=== PATIENT | female | born 1990 | race Caucasian/White ===

== ENCOUNTER → 2016-10-13 | Outpatient (CLI) | payer BC, OTHER ==
[~2016-10-13] MED LIST: PRENTAB26 PO
[2016-10-17 02:38] LABS: CHLAMYDIA TRACH RNA*** NOT DETECTED (NOT DETECTED); GC (NEIS GONORRHOEAE)RNA** NOT DETECTED (NOT DETECTED)
== END | disposition home or self-care (01) ==
LOC: C.LABSPEC 15:00
PROVIDERS: ATTEND Obstetrics & Gynecology
DX: Z34.81 Encounter for supervision of other normal pregnancy, first trimester (principal)

== ENCOUNTER → 2016-10-13 | Outpatient (CLI) | payer BC, OTHER | END | disposition home or self-care (01) | LOC: C.PAPS 15:10 | PROVIDERS: ATTEND Obstetrics & Gynecology | DX: R87.610 Atypical squamous cells of undetermined significance on cytologic smear of cervix (ASC-US) (principal) ==

== ENCOUNTER 2016-11-11 10:29 | Day surgery (SDC) | payer BC, OTHER ==
--- NOTE | 2016-11-10 18:49 | HISTORY & PHYSICAL EXAMINATION ---
DATE: 11/11/16 CHIEF COMPLAINT: Intrauterine demise at 8 weeks 5 days. HISTORY OF PRESENT ILLNESS: The patient is a 26-year-old 2, para 1, general health is good. Last menstrual period for this was 08/29/2016. On 10/27/2016, she had a transvaginal ultrasound which showed an intrauterine gestation 8 weeks 1 day and a heartbeat. Her next visit was on 11/10/2016. We were unable to get the heart tones with abdominal Doppler. We then did an abdominal ultrasound which diagnosed an intrauterine demise at 8 weeks 5 days gestation. She is presently being scheduled for an outpatient D&E. PAST MEDICAL HISTORY: She has no known drug allergies. No history of rheumatic fever, heart disease, heart murmur, diabetes, tuberculosis. She has a girl 2 years old, in good health. PAST SURGICAL HISTORY: She has had oral surgery in 2013. SOCIAL HISTORY: No smoking. No alcohol intake. Works at home. FAMILY HISTORY: Mom is 56, in good health. Father 57, has diabetes and high blood pressure. Has 3 younger sisters, in good health. REVIEW OF SYSTEMS: HEAD: No symptoms of frequent or severe headaches. EYES: No symptoms of blurred vision, double vision. EARS: No symptoms of frequent ear infection, difficulty hearing. NOSE: No symptoms of frequent nosebleeds, difficulty breathing through her nose. THROAT: No symptoms of frequent or severe sore throat, difficulty swallowing. RESPIRATORY SYSTEM: No history of asthma, chest pain, shortness of breath. PHYSICAL EXAMINATION: GENERAL: Well-developed, well-nourished 26-year-old white female, alert, oriented x3 and cooperative, in no acute distress, appears her stated age. EYES: Conjunctivae are pink, sclerae white, no evidence of jaundice. EARS: Had normal light reflex bilaterally. NOSE: Had normal mucosa. Septum is midline. There were no polyps. THROAT: No erythema or evidence of infection. Teeth are in good state of repair. HEAD: Was normocephalic, normal distribution of hair. NECK: Supple. Trachea midline. Thyroid is not enlarged. There is no adenopathy appreciated. Both carotids are of good intensity. CHEST: Clear to auscultation and percussion. No wheezes, rales or rhonchi appreciated. ABDOMEN: Soft and nontender. PELVIC: Revealed a normal appearing cervix. Uterus is about 8-9 weeks' gestational size. There were no adnexal masses appreciated. MUSCULOSKELETAL: Revealed no calf tenderness. IMPRESSIONS OF THIS CASE: Intrauterine demise at 8 weeks 5 days gestation.
[~2016-11-11] VITALS: Ht 167.6 cm; Wt 59.9 kg
[~2016-11-11 10:29] MED LIST changes: +DEXAMETHASONE SOD INJ 4 MG/ML VIAL ONE; +FENTANYL CITRATE INJ 50 MCG/1 ML 2 ML VIAL ONE; +LIDOCAINE HCL 2% 2 ML VIAL (20MG/ML) ONE; +MIDAZOLAM HCL 1 MG/ML 2ML VIAL ONE; +ONDANSETRON INJ 2 MG/ML 2 ML VIAL ONE; +PROPOFOL IV EMULSION 10 MG/ML 20 ML VIAL IV ONE
[2016-11-11 10:47] VITALS: BP 116/85; PULSE 80; TEMP 36.7; O2SAT 100; Ht 167.6 cm; Wt 59.9 kg
--- NOTE | 2016-11-11 11:44 | History & Physical Bridge Note ---
H&P Re-Evaluation Bridge Note: I have examined the patient, reviewed the History & Physical and in the interval since the performance of the History & Physical I have noted the following changes of clinical significance: No changes noted
[2016-11-11] MEDS ORDERED: SODIUM CHLORIDE 0.9% 1000ML 1,000 ML IV SCH (12:29)
[2016-11-11] MEDS ORDERED: OXYCODONE/ACETAMINOPHEN 5-325 TAB PO PRN ×2 (12:30)
[2016-11-11] MEDS ORDERED: ONDANSETRON INJ 2 MG/ML 2 ML VIAL IV PRN ×2 (12:30→13:00)
[2016-11-11] MEDS ORDERED: HYDROCODONE/ACETAMOPHEN 5/325MG TAB PO PRN ×4 (12:30)
[2016-11-11] MEDS ORDERED: IBUPROFEN 600 MG TAB PO PRN (12:30)
[2016-11-11] MEDS ORDERED: KETOROLAC TROMETHAMINE 30 MG/ML VIAL IV. PRN (12:30)
--- NOTE | 2016-11-11 12:33 | [facility] Post Operative Brief Note ---
Immediate Operative Summary Operative Date Nov 11, 2016. Pre-Operative Diagnosis missed at 8 weeks 3 days Post-Operative Diagnosis same pathology pending Procedure(s) Performed suction and sharp evacuation uterine cavity Surgeon мария Icing Machine Operator Surgeon(s) none Estimated Blood Loss 50 ml Findings uterine contents Specimens uterine contents Complication(s) None Disposition Recovery Room / PACU
--- NOTE | 2016-11-11 12:34 | Discharge Instructions ---
Discharge Instructions Date of Service Nov 11, 2016. Admission Reason for Admission: Missed Discharge Discharge Diagnosis / Problem: missed Discharge Goals Goal(s): Routine recovery after surgery Activity Recommendations Activity Limitations: as noted below ACTIVITY RECOMMENDATIONS: * Avoid tampons, douching, hot tubs, pools, and intercourse until bleeding has stopped. * May shower as usual. * No strenuous activity for 24-48 hours. After 24-48 hours, you may do anything you feel like doing (driving and sports are okay). SPECIAL CARE INSTRUCTIONS: Special Diet: * Mild nausea may occur in the immediate post-operative period. * Take clear liquids such as tea, cola or bouillon until all nausea has subsided; you may then resume your normal diet. Special Care: * Light bleeding and vaginal spotting can last from a few days to 3-4 weeks. Call your doctor if bleeding becomes heavier than the heaviest part of your period. * Check your temperature twice a day for one week. If it goes above 100.4 degrees Fahrenheit (38.0 Celsius), notify your doctor. * Call your doctor's office for an appointment for 6 weeks after your surgery. FOLLOW-UP VISIT: Call your doctor's office for an appointment for 6 weeks after your surgery. . Current Hospital Diet Patient's current hospital diet: Discharge Diet Recommended Diet: Regular Diet Procedures Procedures Performed: suction and sharp evacuation uterine cavity Pending Studies Studies pending at discharge: no Medical Emergencies . Who to Call and When: Medical Emergencies: If at any time you feel your situation is an emergency, please call 911 immediately. . Non-Emergent Contact Non-Emergency issues call your: [employer] Call Non-Emergent contact if: temperature is above 100.5 . . "Provider Documentation" section prepared by Seng Gatica. VTE Core Measure Inpt VTE Proph given/why not?: Treatment not indicated
[2016-11-11] MEDS ORDERED: OXYTOCIN INJ 10 UNITS/ML VIAL ONE (12:51)
[2016-11-11] MEDS ORDERED: FENTANYL CITRATE INJ 50 MCG/1 ML 2 ML VIAL ONE (12:55)
[2016-11-11] MEDS ORDERED: HYDROmorphone INJ 1 MG/ML SYR IV PRN (13:00)
[2016-11-11] MEDS ORDERED: ATROPINE SULFATE 0.1 MG/ML 5ML SYR IV PRN (13:00)
[2016-11-11] MEDS ORDERED: FENTANYL CITRATE INJ 50 MCG/1 ML 2 ML VIAL IV PRN (13:00)
[2016-11-11] MEDS ORDERED: PROMETHAZINE HCL INJ 6.25 MG in SODIUM CHLORIDE 0.9% 50ML 50 ML IV PRN (13:00)
[2016-11-11] MEDS ORDERED: EpHEDrine SULFATE INJ 50 MG/ML AMP IV PRN (13:00)
--- NOTE | 2016-11-11 13:12 | OPERATIVE REPORT ---
DATE OF OPERATION: 11/11/2016 PREOPERATIVE DIAGNOSIS: Intrauterine demise at about 8 weeks 3 days, missed . POSTOPERATIVE DIAGNOSIS: Same. Pathology pending. PROCEDURE: Suction sharp curettage of the endometrial cavity. SURGEON: Dr. Gatica. ESTIMATED BLOOD LOSS: 50 mL. ANESTHESIA: General. OPERATIVE FINDINGS AND PROCEDURE: The patient was brought to the OR table, correctly identified by armband and conversation. General anesthesia was administered. Perineum and vagina were painted with Betadine paint, draped in usual sterile fashion. Catheter was used to empty the bladder. Careful pelvic exam under anesthesia revealed an 8 week size anteverted uterus. There were no adnexal masses appreciated. Weighted speculum was placed in the posterior vagina. Anterior lip of the cervix was grasped with an Allis. Cervix was dilated with graduated dilators. A #8 suction curette was placed in the uterine cavity. Suction was applied, amnionic fluid and tissue could be seen coming through the curette. Following thorough evacuation with the suction curette, sharp curette was placed in the uterine cavity. The uterine cavity was gently curetted and then I resection out all remaining blood clots and tissue fragments. Following this bimanual massage contracted the uterus nicely. Hemostasis was good. Instruments were removed. The patient tolerated the procedure well and left the OR in good condition. I attest to the content of the Intraoperative Record and any orders documented therein. Any exceptio ns are noted below.
--- NOTE | 2016-11-11 13:15 | Anesthesiology Progress Note ---
Anesthesia Post Op Note Date & Time Nov 11, 2016 at 13:15 Vital Signs Pain Intensity: 3 Vital Signs Past 12 Hours Date Time Temp Pulse Resp B/P Pulse Ox O2 Delivery O2 Flow Rate FiO2 11/11/16 13:10 76 19 119/96 99 Room Air 11/11/16 13:00 72 13 117/91 100 Room Air 11/11/16 12:50 80 15 125/100 100 Room Air 11/11/16 12:40 36.3 82 22 131/107 97 Room Air 11/11/16 10:47 36.7 80 16 116/85 100 Room Air Notes Mental Status: alert / awake / arousable, participated in evaluation Pt Amnestic to Procedure: Yes Nausea / Vomiting: adequately controlled Pain: adequately controlled Airway Patency, RR, SpO2: stable & adequate BP & HR: stable & adequate Hydration State: stable & adequate Anesthetic Complications: no major complications apparent
[2016-11-11 13:25] VITALS: BP 133/81; PULSE 80; TEMP 37; O2SAT 98
[2016-11-11 14:00] VITALS: BP 127/79; PULSE 80; O2SAT 98
[2016-11-11 14:25] VITALS: BP 124/71; PULSE 88; TEMP 36.8; O2SAT 98
== END 2016-11-11 14:30 | disposition home or self-care (01) ==
LOC: C.ACU 10:29
PROVIDERS: ATTEND Obstetrics & Gynecology
DX: O02.1 Missed abortion (principal)

== ENCOUNTER → 2017-01-26 | Outpatient (CLI) | payer OTHER ==
[~2017-01-26] MED LIST changes: -DEXAMETHASONE SOD INJ 4 MG/ML VIAL ONE; -FENTANYL CITRATE INJ 50 MCG/1 ML 2 ML VIAL ONE; -LIDOCAINE HCL 2% 2 ML VIAL (20MG/ML) ONE; -MIDAZOLAM HCL 1 MG/ML 2ML VIAL ONE; -ONDANSETRON INJ 2 MG/ML 2 ML VIAL ONE; -PROPOFOL IV EMULSION 10 MG/ML 20 ML VIAL IV ONE
[2017-01-30 01:32] LABS: CHLAMYDIA TRACH RNA*** NOT DETECTED (NOT DETECTED); GC (NEIS GONORRHOEAE)RNA** NOT DETECTED (NOT DETECTED)
== END | disposition home or self-care (01) ==
LOC: C.LABSPEC 15:18
PROVIDERS: ATTEND Obstetrics & Gynecology
DX: Z34.81 Encounter for supervision of other normal pregnancy, first trimester (principal)

== ENCOUNTER → 2017-02-04 | Outpatient (CLI) | payer OTHER | END | disposition home or self-care (01) | LOC: C.LAB 11:19 | PROVIDERS: ATTEND Obstetrics & Gynecology | DX: O20.0 Threatened abortion (principal) ==

== ENCOUNTER → 2017-02-10 | Outpatient (CLI) | payer OTHER | END | disposition home or self-care (01) | LOC: C.LAB 16:36 | PROVIDERS: ATTEND Obstetrics & Gynecology | DX: O20.0 Threatened abortion (principal); Z3A.00 Weeks of gestation of pregnancy not specified ==

== ENCOUNTER → 2017-02-16 | Outpatient (CLI) | payer OTHER | END | disposition home or self-care (01) | LOC: C.PATHSPEC 17:18 | PROVIDERS: ATTEND Obstetrics & Gynecology | DX: O03.9 Complete or unspecified spontaneous abortion without complication (principal) ==

== ENCOUNTER → 2017-02-17 | Outpatient (CLI) | payer OTHER ==
[2017-02-17 18:03] LABS: HEMATOCRIT 39.8 % (37-47)
== END | disposition home or self-care (01) ==
LOC: C.LAB 17:39
PROVIDERS: ATTEND Obstetrics & Gynecology
DX: O03.9 Complete or unspecified spontaneous abortion without complication (principal)

== ENCOUNTER 2021-02-13 15:20 | Inpatient (IN) ==
[2021-02-13] MEDS ORDERED: OXYTOCIN 30 UNITS/500 ML BAG IV PRN (17:40)
[2021-02-13] MEDS ORDERED: miSOPROStoL 50 MCG TAB PO ONE ×3 (17:40→22:00)
[2021-02-13 18:03] LABS: Hematocrit (blood only) 35.6 % (37-47); Hemoglobin 11.8 g/dL (12.0-16.0); Mean Corpuscular Hemoglobin 28.4 pg (25-34); Mean Corpuscular Hgb Conc 33.1 g/dL (32-36); Mean Corpuscular Volume 85.8 fL (80-100); Mean Platelet Volume 10.2 fL (7.4-10.4); Platelet Count 263 K/uL (130-400); RDW Coefficient of Variation 13.4 % (11.5-14.5); RDW Standard Deviation 42.1 fL (36.4-46.3); Red Blood Count 4.15 M/uL (4.2-5.4); White Blood Count 12.97 K/uL (4.8-10.8)
[2021-02-14] MEDS ORDERED: DINOPROSTONE 10 MG INSERT PV ONE (02:49)
[2021-02-14] MEDS ORDERED: OXYTOCIN 30 UNITS/500 ML BAG IV PRN ×2 (16:47→20:51)
[2021-02-14] MEDS: LACTATED RINGER'S 1,000 ML IV PRN ×2 (17:30→19:56)
[2021-02-14] MEDS ORDERED: BUPIVACAINE 0.25% 30 ML VIAL ONE (18:21)
[2021-02-14] MEDS ORDERED: ePHEDrine sulfate 50 MG/ML AMP ONE (18:21)
[2021-02-14] MEDS ORDERED: fentaNYL citrate 100 MCG/2 ML VIAL ONE (18:21)
[2021-02-14] MEDS ORDERED: SODIUM CHLORIDE 0.9% INJ 10 ML VIAL ONE (18:21)
[2021-02-14] MEDS ORDERED: fentaNYL 2MCG/ML ROPIVACAINE 1.25MG/ML 100 ML BAG EPI ONE (18:22)
[2021-02-14] MEDS ORDERED: BUTORPHANOL TARTRATE 1 MG/ML VIAL IV PRN (19:07)
[2021-02-14] MEDS ORDERED: BUTORPHANOL TARTRATE 1 MG/ML VIAL IV ONE (19:30)
--- NOTE | 2021-02-14 19:37 | Anesthesiology Consultation ---
Date of Service February 14, 2021 Assessment & Plan (1) Encounter for pre-operative examination: Chart Review Chart Review: Acceptable Risk for Labor Epidural Consults Requested none ASA ASA2 Proposed Anesthesia Anesthesia Type: Labor Epidural Risk / Benefits Reviewed With: PT / POA / Parent / Guardian, Accepts Plan and Informed Consent Obtained History Height/Weight Weight: 78.018 kg Allergies Allergy/AdvReac Type Severity Reaction Status Date / Time No Known Allergies Allergy Verified 01/25/19 15:21 Medications Home Medications Medication Instructions Recorded Confirmed Last Taken multivitamin with minerals 1 tab PO 3XWK 01/25/19 02/13/21 02/13/21 Active Medications Generic Name Dose Route Start Last Admin Trade Name Freq PRN Reason Stop Dose Admin Lactated Ringer's 1,000 mls @ 125 mls/hr 02/13/21 17:40 02/14/21 18:35 Lr IV 02/15/21 17:39 999 mls/hr .Q8H PRN Infusion L&D Protocol Protocol Oxytocin 30 units in 500 mls @ 6 mls/hr 02/14/21 16:47 02/14/21 18:30 Pitocin IV 02/16/21 16:46 0.36 units/hr .Q24H PRN 6 mls/hr Labor Induction/Augmentation Titration Protocol 0.36 UNITS/HR Past Medical History Medical History Achilles tendon injury Exercise / Class Metabolic Activity II 4-5 Yardwork/Stairs/Walk up hill Past Surgical History Surgical History History of dilatation and curettage History of dilatation and curettage 2017 History of tooth extraction Past Anesthesia History No Hx of Anesthesia Complications and No Family Hx of Anesthesia Complications History of PONV No Hx of PONV and No Hx of Motion Sickness Social History Smoking Status: Current every day smoker tobacco type: e-cigarettes Do You Dip or Chew Tobacco: No Hx Alcohol Use: No alcohol intake frequency: 0-2 drinks per day Hx Substance Use: No substance use type: does not use Physical Exam Vital Signs Last Vital Signs Temp 98.2 F 02/14/21 17:11 Pulse 81 02/14/21 19:32 Resp 20 02/14/21 17:11 BP 135/87 02/14/21 19:31 Pulse Ox 98 02/14/21 19:32 ENMT Mouth: no dentition abnormality Thyromental Distance: > or= 3.5 Finger Breadths Mallampati Class: II Neck normal visual inspection Respiratory normal respiratory effort Auscultation: lungs clear to auscultation bilaterally Cardiovascular Rate/Rhythm: regular rate and regular rhythm Testing Laboratory Results 02/13/21 17:54
[2021-02-14] MEDS ORDERED: ePHEDrine sulfate 50 MG/ML AMP IV PRN (19:55)
[2021-02-14] MEDS ORDERED: diphenhydrAMINE 50 MG/ML VIAL IV PRN (19:55)
[2021-02-14] MEDS ORDERED: fentaNYL 2MCG/ML ROPIVACAINE 1.25MG/ML 100 ML BAG EPI PRN (19:55)
[2021-02-14] MEDS ORDERED: NALOXONE HCL 0.4 MG/1 ML VIAL/CARP IV PRN (19:55)
[2021-02-14] MEDS ORDERED: NALOXONE HCL 1 MG in SODIUM CHLORIDE 0.9% 1000ML 1,000 ML IV PRN (19:55)
[2021-02-14] MEDS ORDERED: ONDANSETRON INJ 2 MG/ML 2 ML VIAL IV PRN (19:55)
[2021-02-14] MEDS ORDERED: ACETAMINOPHEN 325 MG TAB PO PRN (20:51)
[2021-02-14] MEDS ORDERED: SUPERCREAM 0.870% 15 GM JAR EXT PRN (20:51)
[2021-02-14] MEDS ORDERED: ACETAMINOPHEN W/CODEINE #3 1 TAB PO PRN (20:51)
[2021-02-14] MEDS ORDERED: bisacodyL 10 MG SUPP PR PRN (20:51)
[2021-02-14] MEDS ORDERED: BENZOCAINE 20% AER SPR 82.5 GM CAN EXT PRN (20:51)
[2021-02-14] MEDS ORDERED: METHYLERGONOVINE MALEATE 0.2 MG/ML AMP IM ONE (20:51)
[2021-02-14] MEDS ORDERED: HYDROCORTISONE ACETATE 25 MG SUPP PR PRN (20:51)
[2021-02-14] MEDS ORDERED: DIPHTHERIA/TETANUS/PERTUSSIS 0.5 ML SYR/VIAL IM ONE (20:51)
[2021-02-14] MEDS ORDERED: oxyCODONE/ACETAMINOPHEN 5mg/325mg TAB PO PRN (20:51)
[2021-02-14] MEDS ORDERED: METHYLERGONOVINE MALEATE 0.2 MG/ML AMP ONE (20:53)
[2021-02-14] MEDS: DOCUSATE SODIUM 100 MG CAP PO SCH (21:58)
--- NOTE | 2021-02-15 00:07 | Delivery Summary ---
The patient is followed in our office for care and delivery. She is a 3, para 2, bl ood type is Rh positive, group B strep negative, was documented with two significant elevations of bl ood pressure several days apart in the office and at term was brought in for induction due to elevate d blood pressures. She was given p.o. Cytotec 4 hours later, another p.o. Cytotec following second p .o. Cytotec. A Cervidil tape was placed; 12 hours later, the Cervidil tape was removed. At that tc e the cervix was like paper thin 4-5 cm. Contractions were regular. She was placed on IV Pitocin an d requested and received epidural anesthesia along with several doses of 1 mg of IV Stadol. Got good pain relief. Membranes ruptured spontaneously. After they ruptured spontaneously she was checked, s he was fully dilated; it was like 0 to +1. She pushed and in a short time crowned a live male via direct occiput anterior position over an intact perineum. was suctioned through the mout h and the nose. Shoulders were delivered without difficulty. Cord was allowed to pulse for 1 minute , then it was clamped, cut by the father. Cord blood was taken. With IV Pitocin running the placent a was removed intact. IM Methergine was given. There was a very small perineal laceration at 6 o'cl ock and this was repaired with a running 3-0 chromic. Following this, hemostasis was good. Vag exam revealed no sponges in the vagina or hematoma formation. Estimated blood loss was 100 mL. Job ID: [id number]
[2021-02-15] MEDS: IBUPROFEN 600 MG TAB PO PRN ×3 (05:03→20:33)
[2021-02-15 07:09] LABS: Hematocrit (blood only) 35.9 % (37-47); Hemoglobin 11.8 g/dL (12.0-16.0); Mean Corpuscular Hemoglobin 28.9 pg (25-34); Mean Corpuscular Hgb Conc 32.9 g/dL (32-36); Mean Platelet Volume 10.6 fL (7.4-10.4); Platelet Count 230 K/uL (130-400); RDW Coefficient of Variation 13.5 % (11.5-14.5); RDW Standard Deviation 43.6 fL (36.4-46.3); Red Blood Count 4.08 M/uL (4.2-5.4)
[2021-02-15] MEDS ORDERED: PRENATAL VITAMIN 1 TAB PO SCH (08:00)
--- NOTE | 2021-02-15 08:28 | Obstetrical Progress Note ---
Date of Service February 15, 2021 Assessment & Plan Admission and Anticipated Discharge Date Admission Date: February 13, 2021 Physical Exam Physical Exam: abdomen soft and non tender ambulating well no calf tenderness vaginal bleeding scant hgb 11.8 Results & Data ([facility]) Vital Signs (Past 12 Hours) Vital Signs Temp Pulse Pulse Resp BP BP Pulse Ox 02/15/21 04:00 36.8 C 89 18 133/90 02/15/21 00:00 36.8 C 82 18 135/86 99 02/14/21 22:40 93 H 149/98 H 02/14/21 22:25 89 151/88 H 02/14/21 22:10 88 136/82 02/14/21 21:55 89 141/85 H 02/14/21 21:45 88 117/77 02/14/21 21:25 88 149/72 H 02/14/21 21:17 83 100 02/14/21 21:12 85 99 02/14/21 21:10 83 135/82 02/14/21 21:07 87 100 02/14/21 21:02 85 99 02/14/21 20:58 91 H 132/78 02/14/21 20:57 88 99 02/14/21 20:52 86 98 02/14/21 20:47 92 H 99 02/14/21 20:45 36.7 C 16 02/14/21 20:42 85 96 02/14/21 20:40 91 H 134/69 02/14/21 20:37 91 H 98 02/14/21 20:32 100 H 98
[2021-02-15] MEDS: DOCUSATE SODIUM 100 MG CAP PO SCH ×2 (09:43→20:32)
--- NOTE | 2021-02-15 10:27 | Anesthesia Procedure Note ---
Date of Service February 15, 2021 Anesthesia Post Epidural Note Vital Signs Vital Signs: Temp Pulse Resp BP Pulse Ox 98.2 F 89 18 133/90 99 02/15/21 04:00 02/15/21 04:00 02/15/21 04:00 02/15/21 04:00 02/15/21 00:00 Pain Intensity Back: Pain Intensity: 9 Lower Abdomen: Pain Intensity: 6 Notes Mental Status: alert / awake / arousable and participated in evaluation Nausea / Vomiting: adequately controlled Pain: adequately controlled Airway Patency, RR, SpO2: stable & adequate BP & HR: stable & adequate Hydration State: stable & adequate Neuraxial Anesthesia: was administered and sensory block is resolving Anesthetic Complications: no major complications apparent and Pt Satisfied with anesthetic care Epidural: Removed without complications and With tip intact
[2021-02-15] MEDS ORDERED: bisacodyL 5 MG TABEC PO SCH (20:00)
== END 2021-02-15 21:55 | disposition home or self-care (01) | DRG 807 ==
LOC: 4S1 15:20 → 4S2 02-14 23:20